=== PATIENT | male | born 1965 | race Caucasian/White ===

== ENCOUNTER 2020-03-09 21:42 | Inpatient (IN) | payer MEDICAID ==
[~2020-03-09] VITALS: Ht 182.9 cm; Wt 72.1 kg
--- NOTE | 2020-03-09 22:10 | NUR ---
Late entry from 2209: Patient presents to ER c/o RLQ abd pain, N/V. Patient has a hx of pancreatitis and thinks this is what the problem is. Patient is also type II diabetic and has been without his insulin x2 days. Patient is in obvious discomfort. Respirations even and unlabored.
--- NOTE | 2020-03-09 22:11 | NUR ---
PT BLOOD SUGAR READS HI
[2020-03-09] MEDS ORDERED: SODIUM CHLORIDE 0.9% 1,000ML IVBOLUS ONE ×2 (22:30→23:30)
[2020-03-09] MEDS ORDERED: SODIUM CHLORIDE FLUSH 10ML SYR IVF ONE (22:30)
[2020-03-09] MEDS ORDERED: ONDANSETRON 2MG/ML, 2ML IVPush ONE (22:30)
[2020-03-09] MEDS ORDERED: HYDROmorphone 1 MG/ML, 1ML INJ IV ONE (22:30)
[2020-03-09] MEDS ORDERED: PROMETHAZINE 25 MG/ML, 1ML IM ONE (22:30)
--- NOTE | 2020-03-09 22:39 | NUR ---
[facility] [place] [phone]
[2020-03-09 22:49] LABS: O2 FLOW ROOM AIR L/min
[2020-03-09] MEDS ORDERED: PROMETHAZINE 25 MG/ML, 1ML ONE (22:56)
[2020-03-09 22:57] LABS: BASOPHILS # (AUTO) 0.07 x10^3/uL (0-0.1); BASOPHILS % (AUTO) 1 % (0-1); EOSINOPHILS # (AUTO) 0.08 x10^3/uL (0-0.4); EOSINOPHILS % (AUTO) 1 % (1-7); LYMPHOCYTES # (AUTO) 4.73 x10^3/uL (1-3.4); LYMPHOCYTES % (AUTO) 40 % (22-44); MD NO; MEAN CORPUSCULAR HEMOGLOBIN 31.5 pg (27.5-34.5); MEAN CORPUSCULAR HGB CONC 33.6 g/dL (33.2-36.2); MEAN CORPUSCULAR VOLUME 93.8 fL (81-97); MEAN PLATELET VOLUME 8.9 fL (7.4-10.4); MONOCYTES # (AUTO) 1.17 x10^3/uL (0.2-0.8); MONOCYTES % (AUTO) 10 % (2-9); NEUTROPHILS # (AUTO) 5.89 x10^3/uL (1.8-6.8); NEUTROPHILS % (AUTO) 49 % (42-75); PLATELET COUNT 309 x10^3/uL (130-400); RED BLOOD COUNT 4.92 x10^6/uL (4.38-5.82); RED CELL DISTRIBUTION WIDTH 15.9 % (9.4-14.8)
[2020-03-09] MEDS ORDERED: ONDANSETRON 2MG/ML, 2ML ONE (22:57)
[2020-03-09] MEDS ORDERED: HYDROmorphone 1 MG/ML, 1ML INJ ONE (22:57)
[2020-03-09 22:58] LABS: ALANINE AMINOTRANSFERASE 86 U/L (12-78); ALBUMIN 3.7 g/dL (3.4-5.0); ANION GAP 14 mmol/L (5-15); CALCIUM 9.4 mg/dL (8.5-10.1); CHLORIDE 94 mmol/L (98-107); CREATININE 1.34 mg/dL (0.7-1.3)
[2020-03-09 23:00] LABS: ALKALINE PHOSPHATASE 119 U/L (45-117); BILIRUBIN,TOTAL 0.3 mg/dL (0.2-1.0); TOTAL PROTEIN 8.4 g/dL (6.4-8.2)
[2020-03-09] MEDS ORDERED: REGULAR INSULIN 100 UNITS in SODIUM CHLORIDE 0.9% 99 ML IV PRN ×2 (23:07→23:14)
[2020-03-09] MEDS ORDERED: SODIUM CHLORIDE 0.9% 1,000 ML IV SCH (23:14)
[2020-03-09] MEDS ORDERED: D5%-0.45NACL+KCL 20MEQ 1,000 ML IV SCH (23:14)
[2020-03-09] MEDS ORDERED: INSULIN SINGLE DOSE, ER ONE (23:41)
[2020-03-09 23:49] LABS: ACETONE, SERUM Trace (Negative)
[2020-03-10] MEDS ORDERED: LISI-167 PO (00:28)
[2020-03-10] MEDS ORDERED: ASPI-515 PO (00:28)
[2020-03-10] MEDS ORDERED: METF500T27 PO (00:28)
[2020-03-10] MEDS ORDERED: ATOR10TA9 PO (00:28)
[2020-03-10] MEDS ORDERED: REGULAR INSULIN 100 UNITS in SODIUM CHLORIDE 0.9% 99 ML IV PRN (00:30)
[2020-03-10] MEDS ORDERED: INSU100V8 SQ (00:30)
[2020-03-10] MEDS ORDERED: INSU100C5 SQ-INSULIN (00:30)
[2020-03-10 00:37] LABS: MICROSCOPIC NOT IND
[2020-03-10] MEDS ORDERED: INSULIN REGULAR 100 UNITS/ML, 3ML VIAL IVPush ONE (01:00)
--- NOTE | 2020-03-10 01:10 | NUR ---
Due to change in BGL, decreased insulin from 5U/hr to 3U/hr. Verified with CLAUDE Vallejo.
[2020-03-10 01:22] LABS: ANION GAP 7 mmol/L (5-15); CALCIUM 8.6 mg/dL (8.5-10.1); CHLORIDE 104 mmol/L (98-107)
[2020-03-10 01:23] LABS: CREATININE 1.12 mg/dL (0.7-1.3)
--- NOTE | 2020-03-10 02:09 | NUR ---
Transferred patient to hospital bed.
--- NOTE | 2020-03-10 02:17 | NUR ---
Patient states, "I think I'm starting to withdrawal (from alcohol)." Patient usually drinks 1/5 per day however yesterday he only drank two beers and a shot. Patient becoming tremulous.
--- NOTE | 2020-03-10 03:12 | NUR ---
break rn fsbg 257 increased gtt by one unit insulin
--- NOTE | 2020-03-10 03:38 | NUR ---
Patient no longer tremulous and sleeping in hospital bed.
[2020-03-10] MEDS ORDERED: FOLIC ACID 1 MG TABLET PO ONE (04:30)
[2020-03-10] MEDS ORDERED: LORazepam 2 MG/ML, 1ML IV PRN ×5 (04:30)
[2020-03-10] MEDS ORDERED: LORazepam 2 MG/ML, 1ML ONE (04:35)
[2020-03-10 04:59] LABS: ANION GAP 6 mmol/L (5-15); CHLORIDE 106 mmol/L (98-107); CREATININE 0.82 mg/dL (0.7-1.3)
--- NOTE | 2020-03-10 05:00 | NUR ---
Ativan admin per [facility] protocol.
--- NOTE | 2020-03-10 06:01 | NUR ---
Insulin adjusted based on FSBS; running at 2U/hr. Patient tolerating well.
--- NOTE | 2020-03-10 06:56 | NUR ---
PT REPORT FROM CLAUDE SMALL. PT CARE TO BE ASSUMED.
--- NOTE | 2020-03-10 07:10 | NUR ---
PT ASLEEP ON HOSPITAL BED. EVEN CHEST RISE AND FALL NOTED. VS/CARDIAC MONITORING CONTINUING. INSULIN INFUSING AT 2ML/HR VIA PUMP. D5/NS45/POTSSSIUM CHLORIDE 20MEQ INFUSING AT 125ML/HR VIA PUMP
[2020-03-10] MEDS: INSULIN LISPRO 100 UNITS/ML, PEN SQ-INSULIN SCH ×4 (08:00→20:59)
[2020-03-10] MEDS ORDERED: MAGNESIUM SULFATE PMX 2GM/50ML 50 ML ONE (08:01)
--- NOTE | 2020-03-10 08:33 | NUR ---
POT CHLORIDE IN D5-45 STILL INFUSING USING LFA IV. INSULIN INFUSING USING LAC IV. SPIKED MAG SULFATE WILL BE SENT TO FLOOR W/ PT. [employer] AT FOR PT TRANSFER.
[2020-03-10] MEDS ORDERED: MAGNESIUM SULFATE PMX 2GM/50ML 50 ML IV ONE (09:00)
[2020-03-10] MEDS: MULTIVITAMIN 1 TABLET PO SCH (09:00)
[2020-03-10 09:11] VITALS: BP 149/92
[2020-03-10] MEDS: SODIUM CHLORIDE 0.9% 1,000 ML IV SCH ×2 (09:44→20:00)
[2020-03-10] MEDS: MULTIVITAMINS/MINERALS TABLET PO SCH (09:50)
[2020-03-10] MEDS: INSULIN GLARGINE 100 UNITS/ML, PEN SQ-INSULIN SCH ×2 (10:53→20:59)
[2020-03-10 13:11] VITALS: BP 113/72
[2020-03-10 14:08] LABS: ANION GAP 2 mmol/L (5-15); CALCIUM 8.6 mg/dL (8.5-10.1); CHLORIDE 103 mmol/L (98-107); CREATININE 0.86 mg/dL (0.7-1.3)
[2020-03-10] MEDS: CHLORDIAZEPOXIDE 25 MG CAPSULE PO SCH ×2 (15:11→20:15)
[2020-03-10] MEDS: LORazepam 2 MG/ML, 1ML IVPush PRN ×2 (16:57→21:02)
[2020-03-10 17:04] VITALS: BP 142/93
[2020-03-10 21:40] VITALS: BP 153/90
[2020-03-11] MEDS: LORazepam 2 MG/ML, 1ML IVPush PRN ×2 (04:23→09:09)
[2020-03-11 04:44] VITALS: BP 151/98
[2020-03-11] MEDS: CHLORDIAZEPOXIDE 25 MG CAPSULE PO SCH (05:41)
[2020-03-11 06:42] LABS: BASOPHILS # (AUTO) 0.06 x10^3/uL (0-0.1); BASOPHILS % (AUTO) 1 % (0-1); EOSINOPHILS # (AUTO) 0.14 x10^3/uL (0-0.4); EOSINOPHILS % (AUTO) 2 % (1-7); LYMPHOCYTES # (AUTO) 3.48 x10^3/uL (1-3.4); LYMPHOCYTES % (AUTO) 35 % (22-44); MD NO; MEAN CORPUSCULAR HEMOGLOBIN 31.4 pg (27.5-34.5); MEAN CORPUSCULAR HGB CONC 33.3 g/dL (33.2-36.2); MEAN CORPUSCULAR VOLUME 94.1 fL (81-97); MEAN PLATELET VOLUME 8.8 fL (7.4-10.4); MONOCYTES % (AUTO) 7 % (2-9); NEUTROPHILS % (AUTO) 56 % (42-75); PLATELET COUNT 238 x10^3/uL (130-400); RED BLOOD COUNT 4.44 x10^6/uL (4.38-5.82); RED CELL DISTRIBUTION WIDTH 15.4 % (9.4-14.8)
[2020-03-11 06:48] LABS: ANION GAP 3 mmol/L (5-15); CALCIUM 8.2 mg/dL (8.5-10.1); CHLORIDE 106 mmol/L (98-107); CREATININE 0.64 mg/dL (0.7-1.3)
[2020-03-11 07:44] VITALS: BP 161/97
[2020-03-11] MEDS: INSULIN LISPRO 100 UNITS/ML, PEN SQ-INSULIN SCH (08:14)
[2020-03-11] MEDS ORDERED: THIAMINE 100 MG in DEXTROSE 5% 50 ML IVPB SCH (09:00)
[2020-03-11] MEDS ORDERED: THIAMINE 200 MG in DEXTROSE 5% 50 ML IVPB SCH (09:00)
[2020-03-11] MEDS: MULTIVITAMIN 1 TABLET PO SCH (09:00)
[2020-03-11] MEDS: MULTIVITAMINS/MINERALS TABLET PO SCH (09:09)
[2020-03-11] MEDS: INSULIN GLARGINE 100 UNITS/ML, PEN SQ-INSULIN SCH (09:17)
[2020-03-11] MEDS ORDERED: FLUOXETINE HCL 20 MG CAPSULE PO SCH (09:30)
[2020-03-11] MEDS ORDERED: THIAMINE 100MG TABLET PO SCH (09:57)
== END 2020-03-11 12:36 | disposition left against medical advice (07) | DRG 638 ==
LOC: ED 23:43 → EDIP 23:54 → 3N 03-10 08:44
PROVIDERS: ADMIT Internal Medicine; ATTEND Hospitalist
DX: E11.10 Type 2 diabetes mellitus with ketoacidosis without coma (principal); R45.851 Suicidal ideations; E87.1 Hypo-osmolality and hyponatremia; F10.239 Alcohol dependence with withdrawal, unspecified; I10 Essential (primary) hypertension; Z53.29 Procedure and treatment not carried out because of patient's decision for other reasons; F17.210 Nicotine dependence, cigarettes, uncomplicated; F32.9 Major depressive disorder, single episode, unspecified; N28.9 Disorder of kidney and ureter, unspecified; Z79.899 Other long term (current) drug therapy
CPT/HCPCS: 36415; 36600; 74022; 80048; 80053; 80307; 81003; 82010; 82803; 82962; 83036; 83690; 83735; 84100; 85025; 87040; 93005; G0378; J1170; J1815; J2405; J2550; J2060; J3475; J3480; J7030